=== PATIENT | female | born 1955 | race Caucasian/White ===

== ENCOUNTER → 2016-08-31 | Outpatient (CLI) | payer BC ==
[~2016-08-31] MED LIST: DAYPRO600 M1 PO; KEFLEX500 MG PO; OXYBUTYNIN5 MG PO; PAXIL20 MG PO; PREVACID30 M1 PO; TRAZODONE100 MG PO
== END ==
LOC: MAMMO 08:39
DX: Z12.31 Encounter for screening mammogram for malignant neoplasm of breast (principal); N63 Unspecified lump in breast

== ENCOUNTER → 2017-05-07 | Outpatient (CLI) | payer BC ==
[~2017-05-07] MED LIST changes: +METOPROLOL SUCC25 M2 PO; +OMEPRAZOLE40 MG PO; +Synthroid,Lev125 MCG PO; +ZESTRIL10 MG PO
--- NOTE | ~2017-05-07 | ST ---
[place], [place] EXERCISE STRESS TEST REPORT NAME: SANDRA WANG UNIT #: [id number] ROOM: DOCTOR: LAVONNE AVILA MD BIRTHDATE: [birth year] DOS: 05/07/2017 Lexiscan portion of the Lexiscan Cardiolite. Baseline cardiogram paced rhythm with intermittent PVCs and occasionally her own sinus rhythm also, 0.4 mg Lexiscan duration of 10 seconds with Lexiscan, no new EKG changes. The patient's underlying EKG with pacer makes the test indeterminate. No chest discomfort, no dysrhythmia. Blood pressure and heart rate response was normal. Nuclear images will be reported separately. LAVONNE AVILA MD CM:STRESS:EXERCISE STRESS TEST REPORT [id number] LAVONNE AVILA MD
== END | disposition home or self-care (01) ==
LOC: CARD 05-02 12:30
DX: I49.5 Sick sinus syndrome (principal); I10 Essential (primary) hypertension; R07.9 Chest pain, unspecified; Z95.0 Presence of cardiac pacemaker

== ENCOUNTER → 2020-12-02 | Outpatient (CLI) | payer BC | END | disposition home or self-care (01) | LOC: COVID19 15:58 | PROVIDERS: ATTEND Internal Medicine Clinical Cardiac Electrophysiology | DX: Z11.52 Encounter for screening for COVID-19 (principal) ==